=== PATIENT | female | born 1995 | race Caucasian/White ===

== ENCOUNTER 2020-12-20 15:53 | Inpatient (IN) | payer OTHER ==
[~2020-12-20] VITALS: Ht 167.6 cm; Wt 122.5 kg
[~2020-12-20 15:53] MED LIST: COLACE100 MG PO
[2020-12-20 17:09] LABS: HEMOGLOBIN 12.1 gm/dl (12.3-15.3); RED BLOOD COUNT 4.31 M/UL (4.00-5.10); WHITE BLOOD COUNT 12.6 K/UL (4.5-11.0)
[2020-12-22] MEDS ORDERED: DOCUSATE SODIU250 MG PO (15:24)
[2020-12-22] MEDS ORDERED: FEROSUL325 MG PO (15:24)
[2020-12-22] MEDS ORDERED: IBUPROFEN600 MG PO (15:24)
[2020-12-23 06:14] LABS: HEMOGLOBIN 11.1 gm/dl (12.3-15.3)
== END 2020-12-23 20:18 | disposition home or self-care (01) | DRG 807 ==
LOC: GENOP 15:53 → OB 16:05
PROVIDERS: Obstetrics & Gynecology; ADMIT Obstetrics & Gynecology
PROC: 4A1HXCZ Monitoring of Products of Conception, Cardiac Rate, External Approach (ICD-10-PCS; 2020-12-20)
PROC: 10E0XZZ Delivery of Products of Conception, External Approach (ICD-10-PCS; principal; 2020-12-21)
PROC: 3E033VJ Introduction of Other Hormone into Peripheral Vein, Percutaneous Approach (ICD-10-PCS; 2020-12-21)
PROC: 10907ZC Drainage of Amniotic Fluid, Therapeutic from Products of Conception, Via Natural or Artificial Opening (ICD-10-PCS; 2020-12-21)
DX: O13.4 Gestational [pregnancy-induced] hypertension without significant proteinuria, complicating childbirth (principal); Z37.0 Single live birth; Z3A.36 36 weeks gestation of pregnancy; O99.334 Smoking (tobacco) complicating childbirth; F17.200 Nicotine dependence, unspecified, uncomplicated; Z20.822 Contact with and (suspected) exposure to COVID-19
CPT/HCPCS: 36415; 51702; 81001; 82800; 85014; 85018; 85025; 90715; J0595; J2590; J2795; J3010; J7120; U0003